=== PATIENT | male | born 1960 ===

== ENCOUNTER 2018-04-21 16:51 | Outpatient (CLI) | payer OTHER ==
[~2018-04-21 16:51] MED LIST: BENADRYL50 MG; CLONAZEPAM1 MG; LISINOPRIL20 MG; RESTORIL15 M1; SYNTHROID88 MCG
== END 2018-04-21 16:58 | disposition home or self-care (01) ==
LOC: LAB 16:51
DX: D68.8 Other specified coagulation defects (principal)

== ENCOUNTER 2018-04-23 05:40 | Day surgery (SDC) | payer OTHER ==
[2018-04-23] MEDS ORDERED: PERCOCET 5-3251 EACH PO (12:26)
[2018-04-23] MEDS ORDERED: NEURONTIN300 MG PO (12:27)
[2018-04-23] MEDS ORDERED: POLY119PG PO (12:27)
== END 2018-04-23 15:15 | disposition home or self-care (01) ==
LOC: CIR.AMB 05:40 → EDBD 08:30 → CIR.AMB 15:15
DX: K43.2 Incisional hernia without obstruction or gangrene (principal)

== ENCOUNTER 2020-09-02 13:59 | Outpatient (CLI) | payer OTHER ==
[~2020-09-02 13:59] MED LIST changes: +NEURONTIN300 MG PO; +PERCOCET 5-3251 EACH PO; +POLY119PG PO
== END 2020-09-02 14:20 | disposition home or self-care (01) ==
LOC: MRI 13:59
PROVIDERS: ATTEND Orthopaedic Surgery
DX: S83.242A Other tear of medial meniscus, current injury, left knee, initial encounter (principal)
CPT/HCPCS: 73718; 73721